=== PATIENT | female | born 1955 | race Caucasian/White ===

== ENCOUNTER 2017-06-06 07:09 | Day surgery (SDC) | payer MEDICARE, MEDICAID ==
[~2017-06-06 07:09] MED LIST: Lactated Ringers 1,000 ML IV SCH; Sodium Chloride 0.9% 5 ML Syringe FLUSH PRN
[2017-06-06] MEDS ORDERED: Propofol 200 MG/20 ML SDV ONE (08:09)
[2017-06-06] MEDS ORDERED: Midazolam 1 MG/ML 2 ML SDV ONE (08:09)
[2017-06-06] MEDS ORDERED: Propofol 200 MG/20 ML SDV IV ONE (08:53)
[2017-06-06] MEDS ORDERED: Midazolam 1 MG/ML 2 ML SDV IV ONE (08:53)
--- NOTE | 2017-06-06 10:11 | PCM.PRNOTE ---
- Free Text/Narrative Note: PROCEDURE PERFORMED: Colonoscopy PRE-PROCEDURE DIAGNOSIS/INDICATION FOR PROCEDURE: Weight loss, screening for colorectal cancer CONSENT: Informed consent was obtained prior to the procedure after discussion of the risks (including pain, bleeding, infection, perforation, adverse reaction to anesthesia, cardiovascular event), benefits and alternatives and expected outcomes were discussed with the patient and her DPOA, Alli Moe. They expressed understanding and wished to proceed. Verbal consent given and consent form signed with nursing double verification.. PROCEDURAL PAUSE: Completed SEDATION: Per anesthesia DESCRIPTION OF PROCEDURE: Patient was placed in the left lateral decubitus position. After adequate sedation and anesthetic was administered, a rectal exam was performed revealing poor sphincter tone, but otherwise normal. A lubricated Olympus Video Colonoscope was inserted into the rectum and air insufflation was performed. The colonoscope was advanced through the rectum, sigmoid, descending, transverse, and ascending colon without difficulties, though a large amount of stool was noted in the right side of the colon which required extensive irrigation and suctioning. The cecum was reached and the ileocecal valve as well as the appendiceal orifice were identified and pictorially documented. After adequate visualization of the cecum, the scope was withdrawn, giving 360-degree views of the colonic mucosa and retroflexion was performed in the rectum with the following findings noted: Ileocecal valve: Normal Cecum: Normal Ascending colon: Normal Hepatic flexure: Normal Transverse colon: Normal Splenic flexure: Normal Descending colon: Normal Sigmoid colon: Normal Rectum: Mild internal hemorrhoids The scope was straightened, air suction performed, and the scope withdrawn without complication. Preparation adequacy fair. IMPRESSION: Colonoscopy performed revealing internal hemorrhoids, but no polyps or other abnormalities. No specimens. No identifiable etiology of weight loss on colonoscopy. PLAN: Next screening colonoscopy due in 10 years. Encourage high fiber diet and bowel regimen to ensure 1-2 soft bowel movements per day.
== END 2017-06-06 11:15 ==
LOC: KA.SDS 07:09
PROVIDERS: ATTEND Family Medicine
DX: K64.8 Other hemorrhoids (principal)
CPT/HCPCS: 45378; J2250; J2704; J7120; 00810